=== PATIENT | male | born 1960 | race Caucasian/White ===

== ENCOUNTER 2017-05-15 20:13 | Emergency (ER) | payer BC ==
[~2017-05-15] VITALS: Ht 180.3 cm; Wt 86.2 kg
[2017-05-15 22:06] VITALS: BP 113/70
--- NOTE | 2017-05-16 03:41 | Emergency Room Report ---
History of Present Illness General Chief Complaint: Lower Extremity Injury Source: Patient Present Illness HPI Patient was in a skiing accident about 10 days ago had acute pain to the calf At this time he noticed swelling to the ankle area and evidence of ecchymosis on the medial aspect of the foot Has minimal discomfort to the ankle itself Patient just simply noticed the swelling which with worsened Denies any chest pain or shortness of breath denies any vomiting denies any other fever Patient was seen at urgent care who recommended rule out for DVT Allergies: Coded Allergies: No Known Allergies (Unverified , 05/15/17) Patient History Past Medical History: see triage record Pertinent Family History: none Reviewed Nursing Documentation: PMH: Agreed, PSxH: Agreed Nursing Documentation-PMH Past Medical History: No Stated History Review of Systems All Other Systems: negative except mentioned in HPI Physical Exam Vital Signs Date Time Temp Pulse Resp B/P (MAP) Pulse Ox O2 Delivery O2 Flow Rate FiO2 05/15/17 20:28 98.4 70 18 113/70 98 Sp02 EP Interpretation: reviewed, normal General Appearance: well appearing, no apparent distress Head: normocephalic, atraumatic Eyes: bilateral eye PERRL, bilateral eye EOMI ENT: hearing grossly normal, normal pharynx Neck: supple Respiratory: chest non-tender, lungs clear Cardiovascular #1: regular rate, rhythm Gastrointestinal: non tender, soft Musculoskeletal: other - Patient able to flex and extend at the ankle, the Achilles tendon is palpable Neurologic: alert, oriented x3, responsive Skin: other - Swelling is noted to the ankle area patient also has evidence of some mild ecchymosis to the medial foot, Lymphatic: no adenopathy Procedures Splinting Splinting : Consent: Verbal Location: left foot Pre-Made Type: aircast Pre-Proc Neuro Vasc Exam: normal Post-Proc Neuro Vasc Exam: normal Patient Tolerated: Well Complications: None Medical Decision Making Diagnostic Impression: Primary Impression: leg swelling Additional Impression: muscle tear ER Course Multiple differentials are considered Patient's ultrasound does not show any DVT X-ray imaging does not show any obvious fracture I suspect the patient has likely muscle tear/ligamental tear Which now is showing evidence of the blood in the foot/ankle area Patient was splinted Referral to orthopedics as given a spoke to the patient's primary physician and eval close outpatient followup Other X-Ray Diagnostic Results Other X-Ray Diagnostic Results #1: X-Ray ordered: left foot # of Views/Limited Vs Complete: 3 View Indication: Pain EP Interpretation: Yes Interpretation: no dislocation, no soft tissue swelling, no fractures Impression: No acute disease Electronically Signed by: Jun Dougherty DO Other X-Ray Diagnostic Results #2: X-Ray ordered: left ankle # of Views/Limited Vs Complete: 3 View Indication: Pain EP Interpretation: Yes Interpretation: no dislocation, no soft tissue swelling, no fractures Impression: No acute disease Electronically Signed by: Jun Dougherty DO Last Vital Signs Date Time Temp Pulse Resp B/P (MAP) Pulse Ox O2 Delivery O2 Flow Rate FiO2 05/15/17 22:06 98.4 85 18 113/70 98 Status: improved Disposition: HOME, SELF-CARE Condition: Improved Referrals: LYSSA CROOKS (PCP) ANDREIA GARCIA Patient Instructions: Edema, [id number], Muscle Tear Additional Instructions: Patient is provided with the discharge instructions notified to follow up with primary doctor in the next 2-3 days otherwise return to the er with any worsening symptoms. Please note that this report is being documented using [employer] technology. This can lead to erroneous entry secondary to incorrect interpretation by the dictating instrument. JUN DOUGHERTY D.O. May 16, 2017 03:41
--- NOTE | 2017-05-16 13:04 | Diagnostic Imaging Report ---
Indication: Pain Technique: XRAY Foot Complete L Comparison: None Findings: There is no acute fracture or dislocation. There is mild soft tissue swelling about the medial malleolus. There is a plantar calcaneal spur. No radiopaque foreign body seen. Impression: No acute fracture or dislocation.
--- NOTE | 2017-05-16 13:40 | Diagnostic Imaging Report ---
Indication: Pain Technique: XRAY Ankle Compl Min 3v L Comparison: None Findings: There is no acute fracture or dislocation. There is mild soft tissue swelling about the medial malleolus. The ankle mortise is intact on these nonstress views. Os trigonum noted. There is a plantar calcaneal enthesophyte. Impression: Mild soft tissue swelling about the medial malleolus. No acute fracture or dislocation.
--- NOTE | 2017-06-01 20:38 | Diagnostic Imaging Report ---
APPROVED REPORT CPT Code: 20903 Present Symptoms Lower Extremity Pain: Left Lower Extremity Edema: Left LEFT LEG: Venous imaging reveals a patent deep venous system. There is no evidence of thrombus within the femoral, popliteal or tibial segments. The greater saphenous vein is also within normal limits. Doppler indicates normal spontaneous flow within these segments.
== END 2017-05-15 22:07 | disposition home or self-care (01) ==
LOC: EMR 20:45
DX: M79.89 Other specified soft tissue disorders (principal); M79.662 Pain in left lower leg
CPT/HCPCS: 93971; 99283